=== PATIENT | male | born 1975 | race Caucasian/White ===

== ENCOUNTER 2017-12-12 18:00 | Observation (INO) | payer OTHER ==
[~2017-12-12] VITALS: Ht 180.3 cm; Wt 101.9 kg
[~2017-12-12 18:00] MED LIST: BENICAR20 MG PO; CRESTOR10 MG PO; KEFLEX500 MG PO; LORTAB 5-325 M1 EACH PO; PREVACID30 MG PO
[2017-12-12] MEDS ORDERED: IRBESARTAN-HCT1 EACH PO (18:23)
[2017-12-12] MEDS ORDERED: LANSOPRAZOLE30 MG PO (18:23)
[2017-12-12] MEDS ORDERED: ROSUVASTATIN CA10 MG PO (18:24)
[2017-12-12 18:52] LABS: HEMATOCRIT 41.8 % (38.0-50.0); HEMOGLOBIN 15.1 G/DL (12.5-16.6); MCHC 36.1 G/DL (30.0-36.0); MCV 83.1 FL (86-99); PLATELET COUNT 247 K/uL (156-360); RBC DIS.WIDTH-CV 12.9 % (11.8-14.6); RBC DIS.WIDTH-SD 38.5 % (39-53); RED BLOOD COUNT 5.03 M/uL (4.00-5.50); WHITE BLOOD COUNT 4.9 K/uL (4.1-10.2)
[2017-12-12 19:01] LABS: ALBUMIN 4.8 g/dL (3.2-4.8); CHLORIDE 103 mEq/L (99-109); POTASSIUM 3.7 mEq/L (3.7-5.4); SODIUM 138 mEq/L (136-147)
[2017-12-12 19:03] LABS: GLUCOSE 96 mg/dL (70-99); TOTAL PROTEIN 7.7 g/dL (6.4-8.3)
[2017-12-12 19:05] LABS: TOTAL BILIRUBIN 0.7 mg/dL (0.0-1.0)
[2017-12-12 19:07] LABS: ALKALINE PHOSPHATASE 80 IU/L (3-129); CREATININE 0.8 mg/dL (0.6-1.3); GFR ESTIMATE (CALCULATED) > 59 mL/min/ (58.99-99999)
[2017-12-12 19:08] LABS: UREA NITROGEN (BUN) 12 mg/dL (9-23)
[2017-12-12 19:09] LABS: AST (GOT) 21 IU/L (2-34)
[2017-12-12 19:10] LABS: ALT (GPT) 32 IU/L (3-49)
[2017-12-12 19:12] LABS: TROP-I INTERPRETATION NEGATIVE; TROPONIN-I < 0.01 ng/mL (0.0-0.30)
[2017-12-12] MEDS ORDERED: IBUPROFEN800 MG PO (21:12)
[2017-12-12] MEDS ORDERED: CHILDREN'S ASPI81 M1 PO (21:15)
[2017-12-12 21:54] LABS: TROP-I INTERPRETATION NEGATIVE; TROPONIN-I < 0.01 ng/mL (0.0-0.30)
[2017-12-12 22:55] VITALS: BP 142/74
[2017-12-13 03:40] VITALS: BP 117/73
[2017-12-13 05:40] LABS: TROP-I INTERPRETATION NEGATIVE; TROPONIN-I < 0.01 ng/mL (0.0-0.30)
[2017-12-13 05:54] LABS: HDL CHOLESTEROL 38 MG/DL (Desirable>=40); LDL CHOLESTEROL 105 mg/dL (Desirable<100); NON-HDL CHOLESTEROL 129 mg/dL (Desirable<160); TOTAL CHOLESTEROL 167 mg/dL (Desirable<200); TRIGLYCERIDES 119 MG/DL (Normal: <150)
[2017-12-13 07:20] VITALS: BP 118/76
[2017-12-13 11:33] VITALS: BP 119/75
== END 2017-12-13 12:12 | disposition home or self-care (01) ==
LOC: EME 18:00 → 4SOUTH 22:10 → EDOF 22:10 → ENRESERV 22:13 → 4SOUTH 22:50
PROVIDERS: Nurse Practitioner Family; Physician Assistant Medical
DX: R07.89 Other chest pain (principal); I10 Essential (primary) hypertension; E78.5 Hyperlipidemia, unspecified; K21.9 Gastro-esophageal reflux disease without esophagitis; Z82.49 Family history of ischemic heart disease and other diseases of the circulatory system; Z79.82 Long term (current) use of aspirin; E66.9 Obesity, unspecified; Z68.31 Body mass index [BMI] 31.0-31.9, adult
CPT/HCPCS: 71046; 80053; 80061; 84484; 85027; 93005; 99281; 99285; G0378